=== PATIENT | female | born 1955 | race Hispanic/Latino ===

== ENCOUNTER → 2022-05-24 | Outpatient (CLI) | payer OTHER | LOC: RAD 09:47 | PROVIDERS: ATTEND Internal Medicine | DX: M47.812 Spondylosis without myelopathy or radiculopathy, cervical region (principal) | CPT/HCPCS: 72050 ==

== ENCOUNTER → 2023-05-14 | Outpatient (CLI) | payer OTHER | LOC: MAMMO 07:52 | PROVIDERS: ATTEND Obstetrics & Gynecology | DX: Z12.31 Encounter for screening mammogram for malignant neoplasm of breast (principal); Z13.820 Encounter for screening for osteoporosis | CPT/HCPCS: 77067; 77080 ==